=== PATIENT | female | born 1950 | race Caucasian/White ===

== ENCOUNTER 2017-04-24 17:46 | Emergency (ER) | payer MEDICARE, OTHER | END 2017-04-24 23:48 | disposition home or self-care (01) | LOC: FER 17:46 | DX: M25.552 Pain in left hip (principal); M54.42 Lumbago with sciatica, left side; E11.9 Type 2 diabetes mellitus without complications; I10 Essential (primary) hypertension; F32.9 Major depressive disorder, single episode, unspecified; E78.5 Hyperlipidemia, unspecified; Z88.8 Allergy status to other drugs, medicaments and biological substances | CPT/HCPCS: J1100; J1170 ==